=== PATIENT | female | born 1985 | race Caucasian/White ===

== ENCOUNTER 2019-01-12 07:20 | Inpatient (IN) | payer BC ==
[~2019-01-12] VITALS: Ht 139.7 cm; Wt 80.5 kg
[2019-01-12] VITALS (60 sets, daily range): BP systolic 99–139; BP diastolic 37–90; PULSE 56–127; TEMP 97.4–98.2
[~2019-01-12 07:20] MED LIST: [UNRECOGNIZED DRUG - OTHER]
--- NOTE | 2019-01-12 07:30 | NUR ---
0730-G4L0 39.0 week GBS negative patient of Dr. Marti's ambulatory to LR 4 with spouse.Patient reports AROM by Dr. Marti at 0700 with clear fluid in office, has continued to have small trickles of clear fluid. Cervix -3 per MD to patient in office. Denies vaginal bleeding and reports GFM. Placed on EFM. Reactive strip. VSS. Assessment complete. 08-Updated MD of patients arrival,see physician notification. Orders to admit patient. 0815-consents reviewed and signed. 0817- on unit, reviewed strip and updated patient on plan of care. 0820-IV started to left forearm, blood collected and sent for lab per orders.
[2019-01-12] MEDS ORDERED: PRENATAL (07:50)
[2019-01-12] MEDS ORDERED: FOLIC ACID 11 MG/TA1 PO (07:51)
[2019-01-12] MEDS ORDERED: GLUCOPHAGE1000 MG PO (07:51)
[2019-01-12] MEDS ORDERED: ASPIRIN 81M81 MG/TA2 PO (07:52)
[2019-01-12] MEDS ORDERED: COLACE 100100 MG/CAP PO (07:52)
--- NOTE | 2019-01-12 08:30 | NUR ---
0830-OFF EFM TO AMBULATE
[2019-01-12 08:55] LABS: BASO % 0.5 % (0.0-2.0); EOS # 0.1 (0.0-0.7); EOS % 1.4 % (0-4.0); GRAN # 6.4 (1.4-6.5); GRAN % 72.5 % (42.2-75.2); HEMATOCRIT 37.2 % (37.0-47.0); HEMOGLOBIN 12.7 g/dl (12.5-16.0); LYMPH # 1.6 (1.2-3.4); LYMPH % 17.9 % (20.0-51.0); MEAN CELL VOLUME 91 fl (80.0-100.0); MEAN CORPUSCULAR HEMOGLOBIN 31 pg (27.0-31.0); MEAN CORPUSCULAR HGB CONC 34 g/dl (33.0-37.0); MEAN PLATELET VOLUME 11.4 fl (7.4-10.4); MONO # 0.6 (0.1-0.6); MONO % 7.2 % (1.7-9.3); PLATELET COUNT 184 K/mm3 (130-400); REDCELL DISTRIBUTION WIDTH-CV 14.2 % (11.5-14.5)
--- NOTE | 2019-01-12 09:32 | NUR ---
0932-Patient back on EFM. Reactive FHR, SVE /-3. 0946-Pitocin started at 2mu/min per protocol and MD order. Patient updated on plan of care.
--- NOTE | 2019-01-12 11:00 | NUR ---
To Birthing Ball at bedside.
--- NOTE | 2019-01-12 11:45 | NUR ---
1145-off EFM to bathroom, Returns to bed WL. 1200-SVE /3, back off EFM to bathroom. 1205-Patient back to bed WL. 1300-TO BB
--- NOTE | 2019-01-12 12:25 | NUR ---
1225-Dr. Marti on unit, reviews FHR monitor. In to see patient. No new orders. Patient denies need for pain medication. Continues to alternate sitting WL in bed and back to BB.
--- NOTE | 2019-01-12 14:00 | NUR ---
1400-SVE /-3 UNCHNAGED, PATIENT REQUESTS EPIDURAL. DR. PORTER NOTIFIED OF SVE AND PATIENTS DESIRE FOR EPIDURAL.
--- NOTE | 2019-01-12 14:51 | NUR ---
1451-ISAAC Mullen in room, patient on bedside sitting upright on bedside for placement. 1456-SS administered by ISAAC Mullen. Patient tolerated well, VSS 1525-Hoyt placed by this RN, Clear yellow urine return, SVE 2-2, rosie care provided. 1530- on unit, reviews strip updated on SVE. 1555-SVE by Dr. Marti 2. 1600-Patient complains of headache, order recieved for Tylenol PRN see ABI, tylenol given. 1730-Patient reports having had a nap and headache improved.
[2019-01-13] VITALS (14 sets, daily range): BP systolic 99–123; BP diastolic 63–79; PULSE 66–93; TEMP 97.3–98.6
--- NOTE | 2019-01-13 00:40 | NUR ---
2350- SVE OF COMPLETE 2354- PT BEGINS PRACTICE PUSHING WITH THIS NURSE. 0007- DR. PORTER NOTIFIED OF IMPENDING DELIVERY, ON HIS WAY TO THE UNIT. 0010- JAIRO MACHADO'D, 200 MLS OUT. PERICARE PROVIDED. PT CONTINUES TO PUSH WITH THIS NURSE 0021- DR. PORTER IN ROOM FOR DELIVERY 0025- SPONTANEOUS VAGINAL DELIVERY OF VIABLE BABY GIRL. BABY TO MOTHER'S ABDOMEN, CORD CLAMPED BY DR. PORTER AND CUT BY FOB. BABY CARES ASSUMED BY Geraldine DURAN RN. 0028- SPONTANEOUS DELIVERY OF INTACT PLACENTA. PITOCIN STARTED PER PROTOCOL. 0030- DR. PORTER BEGINS REPAIR OF 2ND DEGREE LACERATION. 0031- 0.2MG METHERGINE IM GIVEN IN RIGHT THIGH PER DR. PORTER. 0040- RECOVERY STARTED.
--- NOTE | 2019-01-13 02:35 | NUR ---
PT UP TO BATHROOM, ABLE TO VOID 400MLS. PERICARE PROVIDED, PERIPAD AND MESH UNDERWEAR ON. EPIDURAL DC'D, BLUE TIP INTACT. PT TO ROOM VIA WHEELCHAIR. PT NAUSEATED, ZOFRAN 4MG IV GIVEN.
--- NOTE | 2019-01-13 10:21 | NUR ---
Initial visit; Parents thanked for offering congratulations for the of their daughter. Optics Engineer thanked family for choosing [facility].
[2019-01-14] MEDS ORDERED: MOTRIN 800800 MG/TAB PO (08:13)
[2019-01-14] MEDS ORDERED: PERCOCET 325 MG1 TA2 PO (10:10)
[2019-01-14] MEDS ORDERED: NEWMANS TOP (10:10)
== END 2019-01-14 11:34 | disposition home or self-care (01) | DRG 806 ==
LOC: LDRO 07:20 → LDR 07:30 → OB 01-13 02:45
PROVIDERS: ADMIT Obstetrics & Gynecology
PROC: 10E0XZZ Delivery of Products of Conception, External Approach (ICD-10-PCS; principal; 2019-01-13)
PROC: 0KQM0ZZ Repair Perineum Muscle, Open Approach (ICD-10-PCS; 2019-01-13)
DX: O42.92 Full-term premature rupture of membranes, unspecified as to length of time between rupture and onset of labor (principal); E72.12 Methylenetetrahydrofolate reductase deficiency; Z37.0 Single live birth; O99.284 Endocrine, nutritional and metabolic diseases complicating childbirth; O70.1 Second degree perineal laceration during delivery; O62.2 Other uterine inertia; Z3A.39 39 weeks gestation of pregnancy
CPT/HCPCS: J2210; J2405; J2550; J2590; J2795; J7120

== ENCOUNTER → 2021-01-07 | Outpatient (CLI) | payer BC ==
[~2021-01-07] MED LIST changes: +ASPIRIN 81M81 MG/TA2 PO; +COLACE 100100 MG/CAP PO; +FOLIC ACID 11 MG/TA1 PO; +GLUCOPHAGE1000 MG PO; +IBU800 M1 PO; +MOTRIN 800800 MG/TAB PO; +NEWMANS TOP; +PERCOCET 325 MG1 TA2 PO; +PRENATAL
== END ==
LOC: ZCOL.LAB
DX: Z20.822 Contact with and (suspected) exposure to COVID-19 (principal)

== ENCOUNTER 2023-07-27 06:17 | Inpatient (IN) | payer BC ==
[2023-07-27] VITALS (53 sets, daily range): BP systolic 93–121; BP diastolic 48–70; PULSE 58–83; TEMP 97.5–97.9
[~2023-07-27] VITALS: Ht 167.6 cm; Wt 84.5 kg
[2023-07-27] MEDS ORDERED: LR & Oxytocin 500 ML IV SCH (06:30)
[2023-07-27] MEDS ORDERED: LR 1,000 ML IV SCH (06:30)
[2023-07-27] MEDS ORDERED: Penicillin G Potassium 5,000,000 UNITS in NS 100 ML IV ONE (06:30)
[2023-07-27] MEDS ORDERED: TYLENOL 500MG500 MG PO (06:59)
[2023-07-27] MEDS ORDERED: FOLIC ACID 11 MG/TA1 (06:59)
--- NOTE | 2023-07-27 07:00 | NUR ---
0625- Pt arrives on unit ambulatory with for scheduled induction. 0634- EFM and TOCO applied and tracing well. O2 sat monitor on and tracing maternal HR. VSS. Assessments completed. IV started without difficulty, labs obtained.
[2023-07-27] MEDS ORDERED: LEXAPRO 10MG10 MG PO (07:06)
[2023-07-27 07:32] LABS: BASO # 0.1 K/mm3 (0.0-0.2); BASO % 0.7 % (0.0-2.0); EOS # 0.2 K/mm3 (0.0-0.7); EOS % 2.4 % (0.0-4.0); GRAN % 71.4 % (42.2-75.2); HEMOGLOBIN 11.6 g/dl (12.5-16.0); LYMPH # 1.3 K/mm3 (1.2-3.4); MEAN CELL VOLUME 91 fl (80.0-100.0); MEAN CORPUSCULAR HEMOGLOBIN 31 pg (27-31); MEAN CORPUSCULAR HGB CONC 34 g/dl (33.0-37.0); MEAN PLATELET VOLUME 11.2 fl (7.4-10.4); MONO # 0.5 K/mm3 (0.1-0.6); MONO % 7.1 % (1.7-9.3); PLATELET COUNT 176 K/mm3 (130-400); RED BLOOD COUNT 3.74 M/mm3 (4.10-5.30); REDCELL DISTRIBUTION WIDTH-CV 14.7 % (11.5-14.5)
[2023-07-27 07:33] LABS: HEMATOCRIT 34.2 % (37.0-47.0)
[2023-07-27] MEDS ORDERED: ROPivacaine PF 0.2% 200 ML IV ONE (09:58)
--- NOTE | 2023-07-27 10:00 | NUR ---
0945- Belkys.ISAAC Block at bedside. Pt assisted to sitting on side of bed for epidural placement. 0951- Single shot, see anesthesia record. 0956- Pt assisted to semi-fowlers with WL, EFM and TOCO adjusted. This RN remains at bedside monitoring BP and FHR.
[2023-07-27] MEDS ORDERED: Penicillin G Potassium 2,500,000 UNITS in NS 100 ML IV SCH (10:29)
[2023-07-27] MEDS ORDERED: ePHEDrine 50 MG/10 ML VIAL IV PRN (10:30)
[2023-07-27] MEDS ORDERED: Ondansetron 4 MG/2 ML VIAL IV PRN (10:30)
[2023-07-27] MEDS ORDERED: Naloxone 0.4 MG/ML VIAL IV PRN ×2 (10:30→16:30)
[2023-07-27] MEDS ORDERED: diphenhydrAMINE 50 MG/ML 1 ML VIAL IV PRN (10:30)
[2023-07-27] MEDS ORDERED: diphenhydrAMINE 25 MG CAP PO PRN (10:30)
--- NOTE | 2023-07-27 15:57 | NUR ---
1550- SVE by , complete/+1. Pt and room prepped for delivery. Roseann Donovan, nursery RN and Vidya, pharmacist in charge owner at bedside. remains at bedside. 155- Pt begins pushing with Chanell, reviews strip from bedside. 155- of viable male , tended to by nursery staff. Pitocin off. 1600- Spontaneous delivery of placenta. Pitocin restarted at 333ml/hr. Fundus massaged by . 2nd degree laceration repaired. Pericare completed. Pt repositioned. Pt tolerated well, infant [id number]
[2023-07-27] MEDS ORDERED: Acetaminophen 500 MG TAB PO SCH (16:30)
[2023-07-27] MEDS ORDERED: Magnes Hydrox (MOM) 80 MG/ML 30 ML CUP PO PRN (16:30)
[2023-07-27] MEDS ORDERED: Measles/Mumps/Rubella Virus Vaccine Live w Diluent 0.5 ML VIAL SQ SCH (16:30)
[2023-07-27] MEDS ORDERED: oxyCODONE 5 MG TAB PO PRN (16:30)
[2023-07-27] MEDS ORDERED: Phenylephrine/Mineral Oil/Petrolatum 57 GM TUBE RC PRN (16:30)
[2023-07-27] MEDS ORDERED: Loratadine 10 MG TAB PO PRN (16:30)
[2023-07-27] MEDS ORDERED: Ibuprofen 800 MG TAB PO SCH (16:30)
[2023-07-27] MEDS ORDERED: Witch Hazel 50% Pads Bulk TUB TP PRN (16:30)
[2023-07-27] MEDS ORDERED: Mag/Al Hydrox/Simeth Susp 30 ML CUP PO PRN (16:30)
[2023-07-27] MEDS ORDERED: Sennosides/Docusate 8.6-50 MG TAB PO SCH (17:00)
--- NOTE | 2023-07-27 20:00 | NUR ---
Pt assisted to edge of bed. Denies feeling lightheaded or dizzy. Pt assisted to restroom via molly steady. Pt able to void. Karenare explained and completed. Pt wheeled to 208 with spouse and infant. Pt oriented to room. Denies needing anything else at this time. Call light within reach
[2023-07-27] MEDS ORDERED: traZODone 50 MG TAB PO PRN (21:00)
[2023-07-27] MEDS ORDERED: Escitalopram 10 MG TAB PO SCH (21:00)
[2023-07-28 00:30] VITALS: BP 98/57; PULSE 58; TEMP 98.1
[2023-07-28 04:00] VITALS: BP 98/59; PULSE 61; TEMP 98
[2023-07-28] MEDS ORDERED: MOTRIN 800800 MG/TAB PO (07:57)
[2023-07-28 08:17] VITALS: BP 98/61; PULSE 61; TEMP 98.3
--- NOTE | 2023-07-28 13:13 | NUR ---
Data: Patient accepted [facility] visit offered during [facility] rounds for baby blessing. Patient stated she is Muslim now, not Buddhism. Assessment: Patient and joyful with of a baby. Plan of Care: [facility] provided baby blessing with certificate that can be framed later. Parents thanked [facility]. Chaplains will remain available as needed/requested while Patient is admitted to this hospital.
== END 2023-07-28 18:15 | disposition home or self-care (01) | DRG 560 ==
LOC: LDR 06:17 → OB 09:59
PROVIDERS: ADMIT Obstetrics & Gynecology
PROC: 10E0XZZ Delivery of Products of Conception, External Approach (ICD-10-PCS; principal; 2023-07-27)
PROC: 0KQM0ZZ Repair Perineum Muscle, Open Approach (ICD-10-PCS; 2023-07-27)
PROC: 10907ZC Drainage of Amniotic Fluid, Therapeutic from Products of Conception, Via Natural or Artificial Opening (ICD-10-PCS; 2023-07-27)
PROC: 3E033VJ Introduction of Other Hormone into Peripheral Vein, Percutaneous Approach (ICD-10-PCS; 2023-07-27)
DX: O99.284 Endocrine, nutritional and metabolic diseases complicating childbirth (principal); Z37.0 Single live birth; E72.12 Methylenetetrahydrofolate reductase deficiency; O99.824 Streptococcus B carrier state complicating childbirth; O70.1 Second degree perineal laceration during delivery; Z3A.39 39 weeks gestation of pregnancy; Z79.82 Long term (current) use of aspirin
CPT/HCPCS: J2405; J2540; J2590; J2795; J7120